=== PATIENT | female | born 1950 | race Caucasian/White ===

== ENCOUNTER 2018-03-26 07:33 | Day surgery (SDC) | payer MEDICARE ==
[~2018-03-26 07:33] MED LIST: Buffered Lidocaine 0.9% SYRIN* 5 ML/SYR SYRINGE INTRADERM ONE; Dexamethasone IV* 4 MG/ML 1 ML (4 MG) IV SLOW PU ONE; Dexamethasone IV* 4 MG/ML 1 ML (4 MG) ONE; Famotidine IV* 10 MG/ML 2 ML (20 mg) IV ONE; Famotidine IV* 10 MG/ML 2 ML (20 mg) ONE; Lactated Ringers 1000 ML Bag* 1,000 ML IV SCH
[2018-03-26] MEDS ORDERED: ceFAZolin 2 GM PREMIX in ORs 2 GM/50 ML BAG IVPB ONE (07:58)
[2018-03-26] MEDS ORDERED: fentaNYL* 50 MCG/ML 2 ML VIAL (100 MCG VIAL) ONE (08:38)
[2018-03-26] MEDS ORDERED: Ondansetron INJ* 2 MG/ML VIAL ONE (08:38)
[2018-03-26] MEDS ORDERED: Midazolam* 1 MG/ML 5 ML VIAL (5 MG) ONE (08:38)
[2018-03-26] MEDS ORDERED: Propofol* 10 MG/ML 20 ML BTL ONE (08:38)
[2018-03-26] MEDS ORDERED: Bupivacaine 0.5%* 50 ML VIAL ONE (09:02)
[2018-03-26] MEDS ORDERED: Lidocaine 1% INJ* 10 MG/ML 30 ML SDV ONE (09:02)
[2018-03-26] MEDS ORDERED: Dexamethasone IV* 4 MG/ML 1 ML (4 MG) ONE (09:03)
[2018-03-26 10:08] VITALS: BP 104/51
--- NOTE | 2018-03-26 14:32 | OP ---
DATE OF OPERATION: 03/26/18 - [facility] DATE OF : 50 SURGEON: Neto Collado DPM HABITAT CONSERVATION PLANNER: None. ANESTHESIA: MAC with local. PRE-OP DIAGNOSIS: Painful neuroma, third intermetatarsal space, left foot. POST-OP DIAGNOSIS: Painful neuroma, third intermetatarsal space left foot. OPERATIVE PROCEDURE: Excision of neuroma from the third intermetatarsal space left foot. PATHOLOGY: Resected neuroma and associated fibrous tissue. HEMOSTASIS: Pneumatic ankle tourniquet 250 mmHg. ESTIMATED BLOOD LOSS: Less than 10 cc. INDICATIONS: The patient with chronic pain in the left forefoot in the third intermetatarsal space that has not responded to previous steroid injections. The patient has modified footwear and activity and continues to have pain and opts to have surgery to remove the neuroma, so she can attempt to improve her function and decrease pain. She had similar condition on the right foot surgically treated and she has done very well. DESCRIPTION OF PROCEDURE: The patient was brought to the operating room and placed on the operating room table in a supine position. The anesthesia department administered IV sedation and a peripheral nerve block was performed about the left forefoot with a 1:1 mixture of 1% lidocaine plain and 0.5% Marcaine plain. The left foot was then prepped and draped in the usual fashion. Attention was directed to the dorsal aspect of the third intermetatarsal space in the left foot where a curvilinear incision was made. This was deepened through the subcutaneous tissues with care being taken to retract neurovascular structures and cauterize superficial bleeders as needed. The deep transverse intermetatarsal ligament was identified as transected and the white neural mass was noted. It was gently freed from surrounding soft tissue attachments and while distracting distally, the proximal portion of the nerve was transected. Remaining stump of nerve was buried into the adjacent interosseous muscle. Next, the mass was then distracted more proximally and the respective medial and lateral branches were also transected. This was sent off the field as specimen. The surgical site was inspected, no further visible neuroma tissue. The surgical site was flushed with copious amounts of normal sterile saline. The subcutaneous tissues were reapproximated with 4-0 Polysorb and skin was reapproximated with 5-0 nylon. A 12 mg of dexamethasone phosphate was infiltrated into the surgical site and the incision was dressed with Xeroform gauze and a light sterile compressive dressing was applied consisting of 4x4 gauze, Michelle, and Lite Coban wrap. Pneumatic ankle tourniquet was deflated about the left ankle and a prompt hyperemic response was noted to all 5 digits in the left foot. Having appeared to tolerate the procedures and anesthesia well, the patient was transported via cart from the operating room to Recovery in satisfactory condition. Noted capillary refill less than 3 seconds to all digits of the left foot. [id number]/[facility] #: [id number] MTDD
== END 2018-03-26 10:17 | disposition home or self-care (01) ==
LOC: OREAST 07:33
PROVIDERS: ATTEND Podiatrist Foot Surgery
DX: G57.82 Other specified mononeuropathies of left lower limb (principal); Z72.0 Tobacco use; M19.90 Unspecified osteoarthritis, unspecified site
CPT/HCPCS: 88304; J0690; J1100; J2250; J2405; J2704; J3010

== ENCOUNTER 2019-02-25 06:42 | Day surgery (SDC) | payer MEDICARE ==
[~2019-02-25 06:42] MED LIST changes: +Acetaminophen TAB* 325 MG ONE; +Acetaminophen TAB* 325 MG PO ONE; -Buffered Lidocaine 0.9% SYRIN* 5 ML/SYR SYRINGE INTRADERM ONE; +Buffered Lidocaine 1% SYRIN* 1 ML/SYRINGE INTRADERM ONE; -Dexamethasone IV* 4 MG/ML 1 ML (4 MG) IV SLOW PU ONE; -Dexamethasone IV* 4 MG/ML 1 ML (4 MG) ONE
[2019-02-25] MEDS ORDERED: ceFAZolin 2 GM in NS PREMIX(*) 2 GM/100 ML BAG IVPB ONE (06:52)
[2019-02-25] MEDS ORDERED: Lidocaine 1% INJ* 10 MG/ML 30 ML SDV ONE (07:13)
[2019-02-25] MEDS ORDERED: Bupivacaine 0.5% SDV PF* 30ML VIAL ONE (07:13)
[2019-02-25] MEDS ORDERED: fentaNYL* 50 MCG/ML 2 ML VIAL (100 MCG VIAL) ONE (07:28)
[2019-02-25] MEDS ORDERED: Midazolam* 1 MG/ML 2 ML VIAL (2 MG) ONE (07:28)
[2019-02-25] MEDS ORDERED: Ketorolac INJ* 30 MG/ML 1 ML VIAL ONE (07:29)
[2019-02-25] MEDS ORDERED: Lidocaine 2% PF * 5 ML VIAL ONE (07:29)
[2019-02-25] MEDS ORDERED: Propofol* 10 MG/ML 20 ML BTL ONE ×2 (07:29→07:36)
[2019-02-25] MEDS ORDERED: DiMENhydriNATE IV* 50 MG/ML VIAL IV PUSH PRN (07:49)
[2019-02-25] MEDS ORDERED: Ondansetron INJ* 2 MG/ML VIAL IV PRN (07:49)
[2019-02-25] MEDS ORDERED: Naloxone* 0.4 MG/ML 1 ML VIAL IV PRN (07:49)
[2019-02-25] MEDS ORDERED: fentaNYL* 50 MCG/ML 2 ML VIAL (100 MCG VIAL) IV PRN (07:49)
[2019-02-25] MEDS ORDERED: Levalbuterol 0.63MG/3ML NEB* UNIT OF USE INH PRN (07:49)
[2019-02-25 08:56] VITALS: BP 111/54
--- NOTE | 2019-02-25 10:39 | OP ---
DATE OF OPERATION: 02/25/19 [facility] DATE OF : 50 SURGEON: Neto Collado DPM. SENIOR SALES ADMINISTRATOR: None. PRE-OP DIAGNOSIS: Painful bone spur, fourth left toe. POST-OP DIAGNOSIS: Painful bone spur, fourth left toe. OPERATIVE PROCEDURE: Excision of bone spur, fourth left toe. PATHOLOGY: Resected hypertrophic and degenerative bone. ANESTHESIA: MAC with local. HEMOSTASIS: Pneumatic ankle tourniquet. ESTIMATED BLOOD LOSS: Less than 3 cc. INDICATIONS: The patient with painful distal lateral fourth left toe with hypertrophic bone demonstrated on radiograph. She has pain while walking, wearing shoes on a regular basis and opted for surgery at this time to remove this painful spur. DESCRIPTION OF PROCEDURE: The patient was brought to the operating room, placed on the operating room table in the supine position. The anesthesia department administered IV sedation and a peripheral nerve block was performed about the left forefoot with a 1:1 mixture of 1% lidocaine plain and 0.5% Marcaine plain. The left foot was exsanguinated with an Esmarch bandage and pneumatic ankle tourniquet was inflated to 250 mmHg about a well-padded left ankle. Attention was directed to the fourth left digit where a linear incision was made over the distal and medial phalanx and a lateral semi-elliptical incision was made to resect redundant skin in the area. Dissection was carried deep to the joint and deep fascia was incised and allowed exposure of the lateral aspect of the middle phalanx and lateral base of the distal phalanx, and using a sagittal saw, this hypertrophic bone was resected putting somewhat of a concavity and then a side cutting bur was used to further remodel and reduce any sharp prominent bony tissue in the area. The surgical site was flushed with copious amounts of normal saline. It should be noted that upon dissection, neurovascular structures were protected, and retracted. Next, the deep fascia was reapproximated with 4-0 Vicryl. Subcutaneous tissues were re- approximated with 4-0 Vicryl and skin was closed with 5-0 nylon. The incision was dressed with Xeroform, gauze, and a light sterile dressing was applied, secured with Coban. The pneumatic ankle tourniquet was deflated about the left ankle and a prompt hyperemic response was notable in all 5 digits of the patient 's left foot. Having appeared to tolerate the procedure and anesthesia well, the patient was transported via cart from the operating room to Recovery in satisfactory condition with capillary refill less than 3 seconds to all digits of the left foot. [id number]/[facility] #: [id number] MTDD
== END 2019-02-25 09:05 | disposition home or self-care (01) ==
LOC: OREAST 06:42
PROVIDERS: ATTEND Podiatrist Foot Surgery
DX: M77.8 Other enthesopathies, not elsewhere classified (principal); M20.42 Other hammer toe(s) (acquired), left foot; G43.909 Migraine, unspecified, not intractable, without status migrainosus; M19.90 Unspecified osteoarthritis, unspecified site
CPT/HCPCS: 88304; 88311; A9270-GY; J0690; J1885; J2250; J2704; J3010; J3490